=== PATIENT | male | born 1950 | race Caucasian/White ===

== ENCOUNTER → 2016-11-16 | Outpatient (CLI) | payer MEDICARE | LOC: LAB 10:20 | DX: E78.00 Pure hypercholesterolemia, unspecified (principal); I51.9 Heart disease, unspecified; I10 Essential (primary) hypertension; R73.01 Impaired fasting glucose; Z12.5 Encounter for screening for malignant neoplasm of prostate ==

== ENCOUNTER → 2017-02-21 | Outpatient (CLI) | payer MEDICARE | LOC: LAB 12:46 | DX: L02.512 Cutaneous abscess of left hand (principal); B95.7 Other staphylococcus as the cause of diseases classified elsewhere ==

== ENCOUNTER → 2017-11-14 | Outpatient (CLI) | payer MEDICARE ==
[2017-11-14 14:10] LABS: EOS # 0.2 (0.04-0.40); EOS % 2.6 % (0.0-4.0); HEMATOCRIT 36.4 % (42.0-52.0); HEMOGLOBIN 12.6 g/dL (13.5-18.0); LYMPH# 1.3 (1.50-4.00); MEAN CELL VOLUME 94 fl (78-100); MEAN CORPUSCULAR HEMOGLOBIN 33 pg (27-31); MEAN CORPUSCULAR HGB CONC 35 g/dL (33-37); MEAN PLATELET VOLUME 11.1 fl (7.4-10.4); MONO # 0.8 (0.20-0.80); PLATELET COUNT 188 K/mm3 (130-400); RED BLOOD COUNT 3.87 M/mm3 (4.20-5.60); RED CELL DISTRIBUTION WIDTH 12.8 % (11.5-14.5); WHITE BLOOD COUNT 7.3 K/mm3 (4.8-10.8)
[2017-11-14 14:23] LABS: ALBUMIN 4.1 g/dL (3.5-5.0); BUN/CREATININE RATIO 13.8 (6.0-26.0); CALCIUM 9.3 mg/dL (8.4-10.2); POTASSIUM 4.1 mmol/L (3.6-5.0); TOTAL BILIRUBIN 0.7 mg/dL (0.2-1.3); TOTAL PROTEIN 6.9 g/dL (6.3-8.2)
== END ==
LOC: LAB 13:58
PROVIDERS: Nurse Practitioner Family
DX: Z00.00 Encounter for general adult medical examination without abnormal findings (principal); I10 Essential (primary) hypertension; Z12.5 Encounter for screening for malignant neoplasm of prostate; Z13.220 Encounter for screening for lipoid disorders

== ENCOUNTER → 2017-11-20 | Outpatient (CLI) | payer MEDICARE ==
[2017-11-21 00:53] LABS: FOLATE (FOLIC ACID) 16.1 ng/mL (7.0-31.4)
== END ==
LOC: LAB 15:34
PROVIDERS: Nurse Practitioner Family
DX: D64.9 Anemia, unspecified (principal)

== ENCOUNTER → 2017-12-10 | Day surgery (SDC) | payer MEDICARE | LOC: MSO 07:19 | DX: K21.0 Gastro-esophageal reflux disease with esophagitis (principal); D12.4 Benign neoplasm of descending colon; D64.9 Anemia, unspecified; D12.3 Benign neoplasm of transverse colon; Z79.01 Long term (current) use of anticoagulants; I10 Essential (primary) hypertension; I35.8 Other nonrheumatic aortic valve disorders; Z95.5 Presence of coronary angioplasty implant and graft; Z87.891 Personal history of nicotine dependence; I82.509 Chronic embolism and thrombosis of unspecified deep veins of unspecified lower extremity | CPT/HCPCS: 00813; A4649; J2704; J7120 ==

== ENCOUNTER → 2018-02-27 | Outpatient (CLI) | payer MEDICARE ==
[2018-02-27 14:27] LABS: HEMATOCRIT 37.2 % (42.0-52.0); HEMOGLOBIN 12.9 g/dL (13.5-18.0)
== END ==
LOC: LAB 13:32
PROVIDERS: Nurse Practitioner Family
DX: D50.0 Iron deficiency anemia secondary to blood loss (chronic) (principal)

== ENCOUNTER → 2019-03-28 | Outpatient (CLI) | payer MEDICARE ==
[2019-03-28 15:51] LABS: EOS # 0.2 (0.04-0.40); EOS % 1.8 % (0.0-4.0); HEMATOCRIT 38.7 % (42.0-52.0); HEMOGLOBIN 13.4 g/dL (13.5-18.0); LYMPH# 1.4 (1.50-4.00); MEAN CELL VOLUME 93 fl (78-100); MEAN CORPUSCULAR HEMOGLOBIN 32 pg (27-31); MEAN CORPUSCULAR HGB CONC 35 g/dL (33-37); MONO # 0.8 (0.20-0.80); PLATELET COUNT 218 K/mm3 (130-400); RED BLOOD COUNT 4.17 M/mm3 (4.20-5.60); RED CELL DISTRIBUTION WIDTH 12.8 % (11.5-14.5); WHITE BLOOD COUNT 8.4 K/mm3 (4.8-10.8)
[2019-03-28 16:02] LABS: ALBUMIN 4.5 g/dL (3.4-4.8); POTASSIUM 4.2 mmol/L (3.5-5.1)
[2019-03-28 16:04] LABS: CALCIUM 9.6 mg/dL (8.3-10.5)
[2019-03-28 16:05] LABS: TOTAL PROTEIN 7.2 g/dL (6.2-8.1)
[2019-03-28 16:07] LABS: TOTAL BILIRUBIN 0.9 mg/dL (0.2-1.2)
== END ==
LOC: LAB 15:38
PROVIDERS: Physician Assistant
DX: Z00.00 Encounter for general adult medical examination without abnormal findings (principal); Z12.5 Encounter for screening for malignant neoplasm of prostate; I35.8 Other nonrheumatic aortic valve disorders; I82.409 Acute embolism and thrombosis of unspecified deep veins of unspecified lower extremity; D50.0 Iron deficiency anemia secondary to blood loss (chronic); D68.52 Prothrombin gene mutation; E78.2 Mixed hyperlipidemia; I11.9 Hypertensive heart disease without heart failure; I25.10 Atherosclerotic heart disease of native coronary artery without angina pectoris

== ENCOUNTER 2020-03-06 16:06 | Emergency (ER) | payer MEDICARE ==
[2020-03-06] MEDS ORDERED: HCTZ 25MG25 MG PO (16:48)
[2020-03-06] MEDS ORDERED: ATORVASTATIN CA20 MG PO (16:49)
[2020-03-06] MEDS ORDERED: SILDENAFIL CIT100 MG PO (16:49)
[2020-03-06] MEDS ORDERED: QUINAPRIL HCL20 MG PO (16:49)
[2020-03-06] MEDS ORDERED: XARELTO20 MG PO (16:49)
[2020-03-06] MEDS ORDERED: FAMOTIDINE20 MG PO (16:49)
[2020-03-06] MEDS ORDERED: NORVASC 10MG10 MG PO (16:49)
[2020-03-06] MEDS ORDERED: CARVEDILOL25 MG PO (16:50)
[2020-03-06 16:52] LABS: EOS # 0.2 (0.04-0.40); EOS % 2.3 % (0.0-4.0); HEMATOCRIT 36.9 % (42.0-52.0); HEMOGLOBIN 12.9 g/dL (13.5-18.0); LYMPH# 1.4 (1.50-4.00); MEAN CELL VOLUME 93 fl (78-100); MEAN CORPUSCULAR HEMOGLOBIN 33 pg (27-31); MEAN CORPUSCULAR HGB CONC 35 g/dL (33-37); MEAN PLATELET VOLUME 11.5 fl (7.4-10.4); PLATELET COUNT 234 K/mm3 (130-400); RED BLOOD COUNT 3.95 M/mm3 (4.20-5.60); RED CELL DISTRIBUTION WIDTH 12.4 % (11.5-14.5); WHITE BLOOD COUNT 9.6 K/mm3 (4.8-10.8)
[2020-03-06 17:01] LABS: ALBUMIN 4.5 g/dL (3.4-4.8); POTASSIUM 3.9 mmol/L (3.5-5.1); SODIUM 139 mmol/L (136-145)
[2020-03-06 17:02] LABS: CALCIUM 9.3 mg/dL (8.3-10.5)
[2020-03-06 17:03] LABS: GLUCOSE 161 mg/dL (75-110)
[2020-03-06 17:04] LABS: TOTAL PROTEIN 7.6 g/dL (6.2-8.1)
[2020-03-06 17:05] LABS: CARBON DIOXIDE 21 mmol/L (23-31); TOTAL BILIRUBIN 0.9 mg/dL (0.2-1.2)
[2020-03-06 17:09] LABS: AST-SGOT 25 U/L (5-34)
[2020-03-06 17:10] LABS: ALT/SGPT 37 U/L (0-55)
[2020-03-06 17:16] LABS: TROPONIN-I < 0.03 ng/mL (<0.030)
[2020-03-06] MEDS ORDERED: MECLIZINE PO (18:29)
[2020-03-06] MEDS ORDERED: ZOFRAN ODT4 MG PO (18:30)
[2020-03-06 18:34] VITALS: BP 151/75
== END 2020-03-06 18:56 | disposition home or self-care (01) ==
LOC: ED 16:06
PROVIDERS: Family Medicine
DX: H83.01 Labyrinthitis, right ear (principal); I10 Essential (primary) hypertension; I25.10 Atherosclerotic heart disease of native coronary artery without angina pectoris; Z79.01 Long term (current) use of anticoagulants; Z95.5 Presence of coronary angioplasty implant and graft; Z87.891 Personal history of nicotine dependence
CPT/HCPCS: J2405

== ENCOUNTER → 2020-03-16 | Outpatient (CLI) | payer MEDICARE ==
[2020-03-06 18:34] VITALS: BP 151/75
[~2020-03-16] MED LIST: ATORVASTATIN CA20 MG PO; CARVEDILOL25 MG PO; FAMOTIDINE20 MG PO; HCTZ 25MG25 MG PO; MECLIZINE PO; NORVASC 10MG10 MG PO; QUINAPRIL HCL20 MG PO; SILDENAFIL CIT100 MG PO; XARELTO20 MG PO; ZOFRAN ODT4 MG PO
[2020-03-16 15:06] LABS: POTASSIUM 4.3 mmol/L (3.5-5.1)
[2020-03-16 15:07] LABS: ALBUMIN 4.4 g/dL (3.4-4.8)
[2020-03-16 15:08] LABS: CALCIUM 9.3 mg/dL (8.3-10.5)
[2020-03-16 15:09] LABS: TOTAL PROTEIN 7.5 g/dL (6.2-8.1)
[2020-03-16 15:10] LABS: EOS # 0.2 (0.04-0.40); HEMATOCRIT 37.4 % (42.0-52.0); HEMOGLOBIN 13.1 g/dL (13.5-18.0); LYMPH# 1.6 (1.50-4.00); MEAN CELL VOLUME 94 fl (78-100); MEAN CORPUSCULAR HEMOGLOBIN 33 pg (27-31); MEAN CORPUSCULAR HGB CONC 35 g/dL (33-37); MEAN PLATELET VOLUME 11.3 fl (7.4-10.4); NEU # 5.9 (1.40-6.50); PLATELET COUNT 222 K/mm3 (130-400); RED CELL DISTRIBUTION WIDTH 12.4 % (11.5-14.5); WHITE BLOOD COUNT 8.6 K/mm3 (4.8-10.8)
== END ==
LOC: LAB 14:45
PROVIDERS: Physician Assistant
DX: Z12.5 Encounter for screening for malignant neoplasm of prostate (principal); E78.5 Hyperlipidemia, unspecified; K21.0 Gastro-esophageal reflux disease with esophagitis; D50.0 Iron deficiency anemia secondary to blood loss (chronic); I35.8 Other nonrheumatic aortic valve disorders; I11.9 Hypertensive heart disease without heart failure

== ENCOUNTER → 2021-07-11 | Outpatient (CLI) | payer MEDICARE ==
[2021-07-11 09:59] LABS: BASO # 0.03 K/mm3 (0.02-0.10); EOS # 0.14 K/mm3 (0.04-0.40); EOS % 1.7 % (0.0-4.0); HEMATOCRIT 39.7 % (42.0-52.0); HEMOGLOBIN 13.7 g/dL (13.5-18.0); LYMPH# 1.46 K/mm3 (1.50-4.00); MEAN CELL VOLUME 95 fl (78-100); MEAN CORPUSCULAR HEMOGLOBIN 33 pg (27-31); MEAN CORPUSCULAR HGB CONC 35 g/dL (33-37); MONO # 0.73 K/mm3 (0.20-0.80); NEU # 5.97 K/mm3 (1.40-6.50); PLATELET COUNT 219 K/mm3 (130-400); RED CELL DISTRIBUTION WIDTH 12.1 % (11.5-14.5); WHITE BLOOD COUNT 8.3 K/mm3 (4.8-10.8)
[2021-07-11 10:20] LABS: ALBUMIN 4.2 g/dL (3.4-4.8); POTASSIUM 4.2 mmol/L (3.5-5.1)
[2021-07-11 10:21] LABS: CALCIUM 9.6 mg/dL (8.3-10.5)
[2021-07-11 10:22] LABS: TOTAL PROTEIN 7.3 g/dL (6.2-8.1)
[2021-07-11 10:24] LABS: TOTAL BILIRUBIN 0.9 mg/dL (0.2-1.2)
== END ==
LOC: LAB 09:16
PROVIDERS: Physician Assistant
DX: Z12.5 Encounter for screening for malignant neoplasm of prostate (principal); Z13.220 Encounter for screening for lipoid disorders; D50.0 Iron deficiency anemia secondary to blood loss (chronic); I10 Essential (primary) hypertension

== ENCOUNTER → 2022-07-14 | Outpatient (CLI) | payer MEDICARE ==
[2022-07-14 15:59] LABS: BASO # 0.02 K/mm3 (0.02-0.10); EOS # 0.17 K/mm3 (0.04-0.40); EOS % 1.9 % (0.0-4.0); HEMOGLOBIN 12.9 g/dL (13.5-18.0); LYMPH# 1.68 K/mm3 (1.50-4.00); MEAN CELL VOLUME 93 fl (78-100); MEAN CORPUSCULAR HEMOGLOBIN 32 pg (27-31); MEAN CORPUSCULAR HGB CONC 35 g/dL (33-37); MONO # 0.75 K/mm3 (0.20-0.80); PLATELET COUNT 204 K/mm3 (130-400); RED CELL DISTRIBUTION WIDTH 12.3 % (11.5-14.5); WHITE BLOOD COUNT 8.8 K/mm3 (4.8-10.8)
[2022-07-14 16:19] LABS: ALBUMIN 4.3 g/dL (3.4-4.8); POTASSIUM 3.7 mmol/L (3.5-5.1)
[2022-07-14 16:20] LABS: CALCIUM 9.2 mg/dL (8.3-10.5)
[2022-07-14 16:21] LABS: TOTAL PROTEIN 7.4 g/dL (6.2-8.1)
[2022-07-14 16:23] LABS: TOTAL BILIRUBIN 0.6 mg/dL (0.2-1.2)
== END ==
LOC: LAB 15:23
PROVIDERS: Physician Assistant
DX: Z00.00 Encounter for general adult medical examination without abnormal findings (principal); Z12.5 Encounter for screening for malignant neoplasm of prostate; Z13.29 Encounter for screening for other suspected endocrine disorder; Z23 Encounter for immunization; E78.5 Hyperlipidemia, unspecified; I82.890 Acute embolism and thrombosis of other specified veins; K21.00 Gastro-esophageal reflux disease with esophagitis, without bleeding; D68.59 Other primary thrombophilia; I11.9 Hypertensive heart disease without heart failure

== ENCOUNTER → 2022-08-08 | Outpatient (CLI) | payer MEDICARE | LOC: LAB 14:35 | DX: R73.9 Hyperglycemia, unspecified (principal); D50.9 Iron deficiency anemia, unspecified ==